=== PATIENT | female | born 1985 | race African-American/Black ===

== ENCOUNTER 2019-03-05 10:19 | Outpatient (CLI) | payer OTHER ==
--- NOTE | 2019-03-05 11:40 | ULT ---
US OB Complete STANDARD History: [Anatomy, size and dates.] Comparison: None. Findings: Real-time grayscale, color, and spectral analysis of the gravid uterus was performed transa bdominal approach. There is a single viable intrauterine with average ultrasound age 22 week 5 day with estima clarence date of delivery July 04, 2019. Estimated weight is 1 lb. 2 oz., 62nd percentile. Biometry: Biparietal diameter: 5.51 cm, 22 weeks 6 day Head circumference: 20.18 cm, 22 week 3 day Abdominal circumference: 17.77 cm, 22 week 5 day Femur length: 3.94 cm, 20 week 5 day The heart rate documented at 1 33 bpm. The placenta is anterior and presentation is cephalic. No placenta previa. Anatomy: The head, cerebellum, lateral ventricles, four-chamber heart, stomach, kidneys, cord inserti on, bladder, spine, lips/nose, upper extremities, lower extremities, three-vessel cord are all normal . Impression: Normal single viable intrauterine .
== END 2019-03-05 10:20 | disposition home or self-care (01) ==
LOC: BICULT 10:19
PROVIDERS: ATTEND Family Medicine
DX: O09.92 Supervision of high risk pregnancy, unspecified, second trimester (principal); Z3A.22 22 weeks gestation of pregnancy
CPT/HCPCS: 76805